=== PATIENT | female | born 1950 | race Caucasian/White ===

== ENCOUNTER 2017-09-01 10:16 | Outpatient (CLI) | payer MEDICARE ==
--- NOTE | 2017-09-05 14:30 | DEXA Report ---
DEXA SCAN: 09/01/2017 INDICATION: Screening. TECHNIQUE: Dual energy x-ray absorptiometry (DXA) was performed on a [employer] system. Regions measured are the AP spine, femoral neck, and, if needed, forearm. COMPARISON: None. In accordance with the International Society for Clinical Densitometry (ISCD) guidelines, data from previous exams may be reanalyzed using current recommendations and techniques. This is done to allow a more accurate basis for comparison with the current study. FINDINGS: The data for the lumbar spine is as follows: REGION BMD (g/cm/cm) T-SCORE Z-SCORE L1 0.858 -2.3 -0.2 L2 0.898 -2.5 -0.4 L3 0.901 -2.5 -0.4 L4 0.986 -1.8 0.3 TOTAL 0.914 -2.2 -0.1 NOTE: All evaluable vertebrae are used for classification. The data for the hip is as follows: REGION BMD (g/cm/cm) T-SCORE Z-SCORE Neck 0.665 -2.7 -0.7 TOTAL 0.685 -2.6 -0.8 NOTE: The femoral neck or total proximal femur, whichever is lowest, is used for classification. IMPRESSION: THE WHO CLASSIFICATION BASED ON THE INTERNATIONAL REFERENCE STANDARD FOR THE LUMBAR SPINE IS OSTEOPENIA. THE WHO CLASSIFICATION FOR THE FEMORAL NECK IS OSTEOPOROSIS. THE FRACTURE RISK IS HIGH. RECOMMENDATION: Patients with diagnosis of osteoporosis or osteopenia should have regular bone mineral density assessment. For those eligible for Medicare, routine testing is allowed once every 2 years. Testing frequency can be increased for patients who have rapidly progressing disease or for those who are receiving medical therapy to restore bone mass. COMMENT: World Health Organization (WHO) definitions for osteoporosis and osteopenia: NORMAL BMD: T-score at 1.0 or higher, fracture risk is low. OSTEOPENIA BMD: T-score between 1.0 and -2.5, fracture risk is increased. OSTEOPOROSIS BMD: T-score at 2.5 or lower, fracture risk high. National Osteoporosis Foundation recommends: 1. Obtain adequate dietary calcium (at least 1200 mg per day) and vitamin D (400 -800 international units per day). 2. Participate, as appropriate, in regular weightbearing and muscle- strengthening exercise. 3. Avoid tobacco use and reduce alcohol and caffeine intake. 4. For more detailed information see the website at www.NOF.org. MTDD
== END 2017-09-01 10:17 | disposition home or self-care (01) ==
LOC: DI 10:16
PROVIDERS: ATTEND Physician Assistant
DX: Z13.820 Encounter for screening for osteoporosis (principal); M81.0 Age-related osteoporosis without current pathological fracture; E55.9 Vitamin D deficiency, unspecified
CPT/HCPCS: 77080

== ENCOUNTER 2018-06-02 13:50 | Outpatient (CLI) | payer MEDICARE ==
--- NOTE | 2018-06-02 16:24 | XRAY Report ---
Reason: COUGH Procedure Date: 06/02/2018 Accession Number: [id number] / [id number] Procedure: XR - Chest 2 View X-Ray CPT Code: 25031 FULL RESULT: EXAM: CHEST RADIOGRAPHY EXAM DATE: 06/02/2018 02:33 PM. CLINICAL HISTORY: Cough. COMPARISON: None. TECHNIQUE: 2 views. FINDINGS: Lungs/Pleura: No focal opacities evident. No pleural effusion. No pneumothorax. High normal lung volumes with mild flattening of the diaphragms. Mediastinum: Heart and mediastinal contours are unremarkable. Other: None. IMPRESSION: No acute cardiopulmonary abnormalities detected. High lung volumes and flattened diaphragms can be seen in obstructive lung disease such as COPD. RADIA
== END 2018-06-02 13:51 | disposition home or self-care (01) ==
LOC: DI 13:50
PROVIDERS: ATTEND Physician Assistant
DX: R05 Cough (principal)
CPT/HCPCS: 71046

== ENCOUNTER 2018-10-28 10:24 | Outpatient (CLI) | payer MEDICARE | END 2018-10-28 10:25 | disposition home or self-care (01) | LOC: RT 10:24 → DI 10:25 | PROVIDERS: ATTEND Physician Assistant | DX: R53.83 Other fatigue (principal); R00.2 Palpitations; I27.20 Pulmonary hypertension, unspecified | CPT/HCPCS: 93005; 93306 ==

== ENCOUNTER 2019-02-21 11:08 | Emergency (ER) | payer MEDICARE ==
[2019-02-21 11:35] VITALS: BP 129/67
--- NOTE | 2019-02-21 12:13 | XRAY Report ---
Reason: injury Procedure Date: 02/21/2019 Accession Number: [id number] / [id number] Procedure: XR - Wrist 4 View RT CPT Code: FULL RESULT: EXAM: RIGHT WRIST RADIOGRAPHY EXAM DATE: 02/21/2019 11:54 AM. CLINICAL HISTORY: Injury. Wrist pain since fall COMPARISON: None. TECHNIQUE: 4 views. FINDINGS: Bones: Cystic changes in the lunate No fractures or bone lesions. Joints: Degenerative changes STT joint with osteophyte, joint space narrowing, subchondral sclerosis. Soft Tissues: Soft tissue swelling. IMPRESSION: WHITNEY WEATHERSA
--- NOTE | 2019-02-21 13:33 | ED Physician Documentation ---
History of Present Illness - Stated complaint Stated Complaint: RT WRIST PX - Chief complaint Chief Complaint: Ext Problem - Additonal information Additional information: This is a 69-year-old female who presents with right wrist pain after tripping on a boat carpenter door this morning. She landed on outstretched right hand and has pain in her right wrist. She is able to move the wrist, but states it is sore. She denies any numbness or tingling. She did not hit her head. She did hit her right knee slightly but states it is only mildly bruised and she is able to walk without issue. Review of Systems Cardiac: denies: Chest pain / pressure Skin: reports: Other (Bruising to right wrist) Musculoskeletal: reports: Extremity pain Neurologic: denies: Head injury PD PAST MEDICAL HISTORY - Past Medical History Other Past Medical History: No anticoagulant use. - Past Surgical History Ortho: Other (No wrist hardware in affected joint.) - Allergies Allergies/Adverse Reactions: Allergies Allergy/AdvReac Type Severity Reaction Status Date / Time No Known Drug Allergies Allergy Verified 02/21/19 11:35 - Living Situation Living Arrangement: reports: At home - Social History Does the pt have substance abuse?: No - Family History Family history: reports: Non contributory PD ED PE NORMAL - Vitals Vital signs reviewed: Yes - General General: Alert and oriented X 3, No acute distress - HEENT HEENT: Atraumatic - Neck Neck: Supple, no meningeal sign - Respiratory Respiratory: No respiratory distress - Abdomen Abdomen: Non distended - Derm Derm: Warm and dry - Extremities Extremities: Other (There is bruising and tenderness primarily on the volar aspect of the right proximal hand. There is mild tenderness in the anatomic snuffbox. Patient is able to flex and extend her wrist. Median, ulnar, and radial sensory distributions intact, as are flexion, extension, abduction of the digits. Brisk capillary refill over all digits.) - Neuro Neuro: Alert and oriented X 3 - Psych Psych: Normal mood, Normal affect Results - Vitals Vitals: Vital Signs - 24 hr 02/21/19 11:27 Temperature 36.2 C L Heart Rate 84 Respiratory 16 Rate Blood Pressure 129/67 O2 Saturation 98 Oxygen O2 Source Room air - Rads (name of study) XR R wrist Radiology: Other (No acute fracture or dislocation) PD MEDICAL DECISION MAKING - ED course Complexity details: considered differential (Fracture, occult fracture, dislocation, contusion, ecchymosis) ED course: Pt has right wrist pain with preserved ROM and she is neurovascularly intact. No elbow pain. She has excellent ROM of her knees, no signs of other extremity injury requiring imaging. XR of the R wrist is negative for fracture, but she does have some snuffbox tenderness so she was placed in a thumb spica splint and will follow up with her PCP in one week for repeat exam and films. If she has new or worsening symptoms she will return to the ED. RICE and supportive care reviewed and patient was discharged home. Departure - Departure Disposition: Home, Self Care Clinical Impression: Right wrist pain Condition: Good Follow-Up: Mine Bishop PA [Primary Care Provider] - Within 1 week (Please obtain repeat R wrist XR, and if there is continued tenderness at base of thumb, consider dedicated scaphoid imaging.) Comments: You were seen today for wrist pain. We do not see signs of an obvious fracture today, however sometimes fractures are not visible on initial x-rays. Please wear the wrist brace that is provided, and follow-up with your primary care provider in 1 week for repeat x-rays. If you have continued pain at the base of your thumb you may need films or further imaging of the scaphoid bone. Return to the emergency department if you have new concerning symptoms such as weakness or numbness. Discharge Date/Time: 02/21/19 14:17
== END 2019-02-21 14:17 | disposition home or self-care (01) ==
LOC: ED 11:08
DX: M25.531 Pain in right wrist (principal)
CPT/HCPCS: 99282; 99283

== ENCOUNTER 2019-02-28 11:46 | Outpatient (CLI) | payer MEDICARE ==
--- NOTE | 2019-02-28 21:05 | XRAY Report ---
Reason: PAIN IN RIGHT WRIST Procedure Date: 02/28/2019 Accession Number: [id number] / [id number] Procedure: XR - Wrist 2 View RT CPT Code: FULL RESULT: EXAM: RIGHT WRIST RADIOGRAPHY EXAM DATE: 02/28/2019 12:02 PM. CLINICAL HISTORY: PAIN IN RIGHT WRIST. COMPARISON: WRIST 4 VIEW RT 02/21/2019 11:40 AM. TECHNIQUE: 2 views. FINDINGS: Bones: No acute fractures are evident. Suspect 2 mm cyst in the lunate bone. Joints: There is joint space narrowing with sclerosis at the articulation between the scaphoid, lunate, and trapezium bones. Soft Tissues: Normal. No soft tissue swelling. IMPRESSION: 1. No acute plain radiographic abnormality. 2. Degenerative narrowing and sclerosis at the articulation between the scaphoid trapezium and trapezoid bones, similar appearance compared to prior. RADIA
== END 2019-02-28 11:47 | disposition home or self-care (01) ==
LOC: DI 11:46
PROVIDERS: ATTEND Physician Assistant
DX: M19.031 Primary osteoarthritis, right wrist (principal)

== ENCOUNTER 2022-08-11 14:43 | Outpatient (CLI) | payer MEDICARE ==
--- NOTE | 2022-08-11 15:57 | XRAY Report ---
PROCEDURE: Foot 3 View LT INDICATIONS: PAIN IN LEFT FOOT TECHNIQUE: 3 views of the foot were acquired. COMPARISON: None FINDINGS: Bones: No fractures or dislocations. Degenerative changes of the interphalangeal joint. No suspicio us bony lesions. Soft tissues: No tibiotalar joint effusion. Achilles tendon appears normal. IMPRESSION: Normal left foot. Reviewed by: Charlie Stoner on 08/11/2022 3:56 PM [facility] Approved by: Charlie Stoner on 08/11/2022 3:56 PM [facility] Station ID: [id number]
== END 2022-08-11 14:44 | disposition home or self-care (01) ==
LOC: DI.S 14:43
PROVIDERS: ATTEND Physician Assistant
DX: M79.672 Pain in left foot (principal)

== ENCOUNTER 2022-10-19 12:45 | Outpatient (CLI) | payer MEDICARE ==
--- NOTE | 2022-10-19 14:16 | DEXA Report ---
PROCEDURE: Dexa Spine and/or Hip INDICATIONS: OSTEOPOROSIS TECHNIQUE: Dual energy x-ray absorptiometry (DXA) was performed on a [employer] System. Regions measur ed are the AP Spine, femoral neck, and if needed forearm. COMPARISON: 09/01/2017 FINDINGS: Lumbar Spine: Bone Mineral Density 0.975 g/cm/cm,T score -1.7, osteopenia Of note, total bone mineral density of the lumbar spine increased 6.7% compared to the prior study wh ich is considered significant. Left Femoral Neck: Bone Mineral Density 0.675 g/cm/cm, T score -2.6, osteoporosis Left Hip: Bone Mineral Density 0.694 g/cm/cm,T score -2.5, osteoporosis (T score greater or equal to -1.0: NORMAL) (T score from -1.1 to -2.4: OSTEOPENIA) (T score less than or equal to -2.5 to: OSTEOPOROSIS) Impression: Osteoporosis. The patient is at high risk for fracture. Patients with diagnosis of osteoporosis or osteopenia should have regular bone mineral density assess ment. For those eligible for Medicare, routine testing is allowed once every 2 years. Testing frequ ency can be increased for patients who have rapidly progressing disease or for those who are receivin g medical therapy to restore bone mass. Reviewed by: Panchito Krause MD on 10/19/2022 2:15 PM PDT Approved by: Panchito Krause MD on 10/19/2022 2:15 PM PDT Station ID: [id number]
== END 2022-10-19 12:46 | disposition home or self-care (01) ==
LOC: DI 12:45
PROVIDERS: ATTEND Physician Assistant
DX: M81.0 Age-related osteoporosis without current pathological fracture (principal)

== ENCOUNTER 2023-03-23 15:57 | Outpatient (CLI) | payer MEDICARE ==
--- NOTE | 2023-03-23 18:50 | XRAY Report ---
PROCEDURE: Lumbar Spine 2 View INDICATIONS: CHRONIC LOW BACK PAIN TECHNIQUE: 3 views of the lumbar spine were acquired. COMPARISON: None. FINDINGS: Bones: 5 [id number] vertebrae are present. No acute fracture or traumatic subluxation. Vertebra l body height is maintained. Severe disc height loss, endplate sclerosis and small anterior osteophyt osis at L5-S1 with facet arthropathy. Remainder of the discs demonstrate mild height loss. Grade 1 an terolisthesis of L4 on L5. Soft tissues: Overlying bowel gas pattern is normal. No suspicious soft tissue calcifications. IMPRESSION: 1. No acute fracture or traumatic subluxation. 2. Degenerative changes of the lumbar spine with severe disc height loss at L5-S1. Reviewed by: Ismael Vann MD on 03/23/2023 6:49 PM PDT Approved by: Ismael Vann MD on 03/23/2023 6:49 PM PDT Station ID: [id number]
== END 2023-03-23 15:58 | disposition home or self-care (01) ==
LOC: DI.S 15:57
PROVIDERS: ATTEND Nurse Practitioner Family
DX: M47.816 Spondylosis without myelopathy or radiculopathy, lumbar region (principal); M51.37 Other intervertebral disc degeneration, lumbosacral region

== ENCOUNTER 2023-05-23 10:15 | Outpatient (CLI) | payer MEDICARE ==
--- NOTE | 2023-05-23 15:47 | XRAY Report ---
PROCEDURE: Foot 3 View RT INDICATIONS: RIGHT FOOT PAIN TECHNIQUE: 3 views of the foot were acquired. COMPARISON: None. FINDINGS: Bones: No fractures or dislocations. No suspicious bony lesions. Soft tissues: No suspicious soft tissue calcifications or masses. IMPRESSION: No acute bony abnormality. Reviewed by: Suze Razo MD on 05/23/2023 3:46 PM PST Approved by: Suze Razo MD on 05/23/2023 3:46 PM PST Station ID: [id number]
== END 2023-05-23 10:16 | disposition home or self-care (01) ==
LOC: DI.S 10:15
PROVIDERS: ATTEND Nurse Practitioner Family
DX: M79.671 Pain in right foot (principal)